=== PATIENT | male | born 1995 | race Two or more races ===

== ENCOUNTER 2019-08-18 18:15 | Emergency (ER) | payer MEDICAID ==
[~2019-08-18] VITALS: Ht 170.2 cm; Wt 75.0 kg
[2019-08-18] MEDS ORDERED: LIDOCAINE 1%/EPI 1:100,000 10 ML VIAL IJ ONE (19:00)
[2019-08-18] MEDS ORDERED: TETANUS, DIPHTHERIA, PERTUSSIS VAC/PF 0.5ML (>7YR OLD) IM ONE (19:00)
[2019-08-18] MEDS ORDERED: BACITRACIN ZINC OINT UDPKT TOP ONE (19:00)
[2019-08-18] MEDS ORDERED: LIDOCAINE HCL/EPINEPHRINE 1%-EPI 1:100,000 20 ML VIAL INFIL SCH (19:06)
[2019-08-18 19:42] LABS: CHLORIDE 107 mEq/L (98-107)
[2019-08-18 19:44] LABS: BASOPHILS % 0.6 % (0.0-2.0); HEMOGLOBIN. 13.9 g/dL (14.0-18.0); LYMPHOCYTES % 20.1 % (20.0-50.0); MEAN CORPUSCULAR HEMOGLOBIN 30.1 pg (28.0-32.0); MEAN CORPUSCULAR VOLUME 88.6 fL (80.0-94.0); MEAN PLATELET VOLUME 8.5 fl (7.4-10.4); MONOCYTES % 9.3 % (2.0-8.0); PLATELET 231 x1000/uL (130-400); RED BLOOD CELL COUNT 4.63 mill/uL (4.7-6.1); RED CELL DISTRIBUTION WIDTH 15.2 % (11.6-14.6)
[2019-08-18 19:46] LABS: ETHANOL BLOOD < 10 mg/dL
[2019-08-18 20:40] LABS: CLARITY URINE CLEAR (CLEAR); COLOR URINE YELLOW (YELLOW); KETONES URINE NEGATIVE (NEGATIVE); LEUKOCYTE ESTERASE URINE NEGATIVE (NEGATIVE); NITRITE URINE NEGATIVE (NEGATIVE); OCCULT BLOOD URINE NEGATIVE (NEGATIVE); PH URINE 6.5 (4.5-8.0); PROTEIN URINE NEGATIVE (NEGATIVE); SPECIFIC GRAVITY URINE 1.024 (1.005-1.030)
[2019-08-18 20:51] LABS: *AMPHETAMINES SCREEN URINE PRESUMTIVE POSITIVE (NEGATIVE); *BARBITURATES SCREEN URINE NEGATIVE (NEGATIVE); *BENZODIAZEPINES SCREEN URINE NEGATIVE (NEGATIVE); *COCAINE SCREEN URINE NEGATIVE (NEGATIVE); METHADONE URINE SCREEN NEGATIVE (NEGATIVE); OPIATES URINE SCREEN NEGATIVE (NEGATIVE)
[2019-08-18 20:52] LABS: CANNABINOID URINE SCREEN NEGATIVE (NEGATIVE); PHENCYCLIDINE URINE SCREEN NEGATIVE (NEGATIVE)
[2019-08-19] MEDS: SERTRALINE HCL 50MG TABLET PO SCH (11:10)
[2019-08-19] MEDS: LEVETIRACETAM 500MG TABLET PO SCH ×2 (11:10→21:00)
[2019-08-19] MEDS ORDERED: DIPHENHYDRAMINE 50MG CAPSULE PO SCH (21:00)
[2019-08-19] MEDS ORDERED: ARIPIPRAZOLE 5MG TABLET PO SCH (21:00)
[2019-08-20 07:32] VITALS: BP 109/54
[2019-08-20] MEDS: LEVETIRACETAM 500MG TABLET PO SCH ×2 (10:23→10:24)
[2019-08-20] MEDS: SERTRALINE HCL 50MG TABLET PO SCH (10:24)
== END 2019-08-20 12:22 | disposition home or self-care (01) ==
LOC: ER 18:15
DX: S51.812A Laceration without foreign body of left forearm, initial encounter (principal); F33.3 Major depressive disorder, recurrent, severe with psychotic symptoms; R05 Cough; J02.9 Acute pharyngitis, unspecified; X78.9XXA Intentional self-harm by unspecified sharp object, initial encounter; Y93.89 Activity, other specified; Y92.89 Other specified places as the place of occurrence of the external cause; F15.10 Other stimulant abuse, uncomplicated; F11.10 Opioid abuse, uncomplicated; F17.210 Nicotine dependence, cigarettes, uncomplicated; F12.90 Cannabis use, unspecified, uncomplicated; Z23 Encounter for immunization; Z20.828 Contact with and (suspected) exposure to other viral communicable diseases
CPT/HCPCS: 12004; 36415; 71045; 80053; 80305; 80307; 80320; 80329; 81003; 85025; 87070; 87420; 87430; 87635; 87804; 90471; 90715; 99285; J3490; G0480

== ENCOUNTER 2019-09-28 12:55 | Emergency (ER) | payer MEDICAID ==
[~2019-09-28] VITALS: Ht 167.6 cm; Wt 77.0 kg
[2019-09-28] MEDS ORDERED: KETOROLAC 60MG/2ML VIAL IM STA (14:30)
[2019-09-28] MEDS ORDERED: BACITRACIN ZINC OINT UDPKT TOP NR (16:15)
[2019-09-28 16:40] VITALS: BP 122/62
== END 2019-09-28 18:53 | disposition home or self-care (01) ==
LOC: ER 13:20
DX: S30.0XXA Contusion of lower back and pelvis, initial encounter (principal); L03.90 Cellulitis, unspecified; F12.10 Cannabis abuse, uncomplicated; W01.0XXA Fall on same level from slipping, tripping and stumbling without subsequent striking against object, initial encounter; Y93.89 Activity, other specified; Y92.89 Other specified places as the place of occurrence of the external cause; Y99.8 Other external cause status
CPT/HCPCS: 72100; 72170; 96372; 99284; J1885